=== PATIENT | female | born 2000 ===

== ENCOUNTER 2020-07-22 18:18 | Emergency (ER) | payer MEDICAID ==
[~2020-07-22] VITALS: Ht 157.5 cm; Wt 73.5 kg
[2020-07-22] MEDS ORDERED: ACETAMINOPHEN 325 MG TABLET ONE (18:41)
[2020-07-22] MEDS ORDERED: ACETAMINOPHEN 325 MG TABLET PO ONE (18:45)
--- NOTE | 2020-07-22 18:47 | NUR ---
chaperoned md with pelvic exam. pt tolerated well.
[2020-07-22 18:48] LABS: *BILIRUBIN,URIN NEGATIVE (NEGATIVE); *BLOOD, URINE NEGATIVE (NEGATIVE); *CLARITY,URINE CLEAR (CLEAR); *COLOR,URINE YELLOW (YELLOW); *KETONES,URINE NEGATIVE (NEGATIVE); LEUKOCYTE ESTERASE ,URINE NEGATIVE (NEGATIVE); NITRITE, URINE NEGATIVE (NEGATIVE); UGLUCOSE NEGATIVE (NEGATIVE)
[2020-07-22 18:54] LABS: *URINE HCG, QUAL NEGATIVE (NEGATIVE)
--- NOTE | 2020-07-22 19:50 | NUR ---
U/S tech in room to do U/S on patient.
[2020-07-22 20:31] VITALS: BP 122/67
--- NOTE | 2020-07-22 20:31 | NUR ---
Patient discharged to home in stable condition. Written and verbal after care instructions given. Patient verbalizes understanding of instructions. Stressed follow up or return to ER for worsening s/s. Patient ambulates with steady gait, v/s stable, left with all personal belongings.
== END 2020-07-22 20:31 | disposition home or self-care (01) ==
LOC: ER 18:34
DX: R39.89 Other symptoms and signs involving the genitourinary system (principal)
CPT/HCPCS: 84703; 87210; A4663